=== PATIENT | female | born 1970 | race Caucasian/White ===

== ENCOUNTER 2021-08-12 20:49 | Inpatient (IN) | payer BC, SELFPAY ==
[2021-08-12 20:59] VITALS: BP 111/58; PULSE 92; RESP 16; TEMP 36.4; O2SAT 93; BMI 26.6
[2021-08-12 21:46] LABS: Appearance Urine CLEAR; Color Urine YELLOW; Glucose Urine UA NEG (NEG); Leukocyte Esterase Urine NEG (NEG); Nitrite Urine NEG (NEG); Specific Gravity - Urine <= 1.005 (1.005-1.025); Urine Blood NEG (NEG); Urine Ketones NEG (NEG); Urine Protein NEG (NEG-TRACE)
[2021-08-12 21:51] LABS: Bacteria Urine 1+ /LPF; Squamous Epithelial Cell Urine 1+ /LPF
[2021-08-12 21:52] LABS: UPreg QC Valid YES; Urine Pregnancy NEGATIVE (NEGATIVE)
--- NOTE | 2021-08-12 21:54 | ED.PSYCH ---
HPI - Psych General Chief Complaint: Psychiatric Symptoms Stated Complaint: crisis Source: patient and EMS Mode of arrival: EMS Limitations: no limitations History of Present Illness HPI Narrative: 51-year-old female presents via EMS for suicidal statement. MD complaint: suicidal ideation, feels depressed and alcohol abuse Duration: constant History of same: Yes Relieving factors: none Exacerbating factors: alcohol Context: significant life stressor Associated psychiatric symptoms: depression and suicidal ideation Associated symptoms: denies other symptoms Treatments prior to arrival: placed on mental health hold If self harm: admits thoughts of self harm Related Data Home Medications Medication Instructions Recorded Confirmed paroxetine HCl 40 mg tablet 1 tab PO BEDTIME 08/12/21 08/12/21 trazodone 50 mg tablet 1 - 2 tab PO BEDTIME PRN 08/12/21 08/12/21 Allergies Allergy/AdvReac Type Severity Reaction Status Date / Time No Known Allergies Allergy Unknown Unverified 05/07/20 17:26 PCN Allergy Unknown rash Uncoded 11/19/13 00:00 Review of Systems Review of Systems: Constitutional: No Fever, No Chills ENT/Mouth: No sore throat, No Rhinorrhea Eyes: No Eye Pain, No Swelling, No Redness Cardiovascular: No Chest Pain, No SOB Respiratory: No Cough, No Sputum Gastrointestinal: No Nausea, No Vomiting, No Diarrhea, No abdominal Pain Genitourinary: No Dysuria, No Hematuria Musculoskeletal: No joint pain, No Myalgias, No Joint Swelling Skin: No Skin Lesions, No rash Neuro: No Weakness, No Numbness, No Loss of Consciousness, No Dizziness, No Headache Psych: No Anxiety, positive Depression, positive SI, no HI/AH/VH, positive alcohol abuse Heme/Lymph: No Bruising, No Bleeding,No Lymphadenopathy Endocrine: No Polyuria, No Polydipsia Yes all other systems are reviewed and are negative PMF Past Medical History Attestation statement: The following information was validated with the patient. Source: old records reviewed Social History Social History Advance Directives: No Advance Directives Information Provided: Yes Patient : No Physical Exam Vital Signs: Vital Signs: Last Vital Signs Temp 97.6 F 08/12/21 20:59 Pulse 92 08/12/21 20:59 Resp 16 08/12/21 20:59 BP 111/58 L 08/12/21 20:59 Pulse Ox 93 08/12/21 20:59 BMI result Body Mass Index 26.6 Appearance: Alert. Oriented X3. Intoxicated. Moderate emotional distress. Eyes: Pupils equal, round and reactive to light. ENT: Pharynx normal. Moist mucous membranes. Neck: Normal inspection. Neck supple. CVS: Normal heart rate and rhythm. Pulses normal. Respiratory: No respiratory distress. Breath sounds normal. Abdomen: Soft and nontender. Skin: Skin warm and dry. Normal skin color. Normal skin turgor. Extremities: No lower extremity edema. Gait well-balanced well coordinated. Neuro: No motor deficit. No sensory deficit. Cranial nerves 2-12 intact. Course Course Course Narrative: 51-year-old female presents via EMS for suicidal statement made after she was served with divorce papers. Clearly intoxicated, has been admitted to this facility for alcohol intoxication psychiatric evaluation in the past. Patient is on a Section 12 from the community. Medically cleared, ETOH is 200. Positive for marijuana. Negative for COVID. Care team re-evaluate for the morning. Section 12 signed by this PHOTOVOLTAIC POWER SYSTEMS ENGINEER. 1:18 a.m. Physician observation started at this time. MDM - Psych Differential Diagnosis Differential diagnosis: Likely suicidal ideation, depression, acute anxiety, substance abuse and alcohol intoxication Medical Records Attestation: I reviewed the patient's medical records. Lab Data Attestation: I reviewed the patient's lab results. Labs: Lab Results 08/12/21 08/12/21 08/12/21 Range/Units 21:28 21:28 21:28 Urine Color YELLOW Urine Appearance CLEAR Urine pH 6.0 (5.0-8.0) Ur Specific [place] <= 1.005 (1.005-1.025) Urine Protein NEG (NEG-TRACE) MG/DL Urine Glucose (UA) NEG (NEG) MG/DL Urine Ketones NEG (NEG) MG/DL Urine Blood NEG (NEG) Urine Nitrite NEG (NEG) Ur Leukocyte Esterase NEG (NEG) Urine RBC 1-4 (0) /HPF Urine WBC 1-4 (0-4) /HPF Ur Squamous Epith Cells 1+ /LPF Urine Bacteria 1+ /LPF Urine Test NEGATIVE (NEGATIVE) Urine Opiates Screen Not Detected (Not Detect) Urine Fentanyl Screen Not Detected (Not Detect) Ur Barbiturates Screen Not Detected (Not Detect) Ur Phencyclidine Scrn Not Detected (Not Detect) Ur Amphetamines Screen Not Detected (Not Detect) U Benzodiazepines Scrn Not Detected (Not Detect) Urine Cocaine Screen Not Detected (Not Detect) U Marijuana (THC) Screen POSITIVE H (Not Detect) Ethyl Alcohol mg/dL COVID-19 (ZEESHAN) (Negative) COVID-19 Clin Com 08/12/21 08/12/21 Range/Units 21:29 21:37 Urine Color Urine Appearance Urine pH (5.0-8.0) Ur Specific [place] (1.005-1.025) Urine Protein (NEG-TRACE) MG/DL Urine Glucose (UA) (NEG) MG/DL Urine Ketones (NEG) MG/DL Urine Blood (NEG) Urine Nitrite (NEG) Ur Leukocyte Esterase (NEG) Urine RBC (0) /HPF Urine WBC (0-4) /HPF Ur Squamous Epith Cells /LPF Urine Bacteria /LPF Urine Test (NEGATIVE) Urine Opiates Screen (Not Detect) Urine Fentanyl Screen (Not Detect) Ur Barbiturates Screen (Not Detect) Ur Phencyclidine Scrn (Not Detect) Ur Amphetamines Screen (Not Detect) U Benzodiazepines Scrn (Not Detect) Urine Cocaine Screen (Not Detect) U Marijuana (THC) Screen (Not Detect) Ethyl Alcohol 239 mg/dL COVID-19 (ZEESHAN) Negative (Negative) COVID-19 Clin Com See Note Discharge Plan Discharge Clinical Impression: Depression, Acute anxiety Prescriptions: No Action trazodone 50 mg tablet 1 - 2 tab PO BEDTIME PRN (Reason: insomnia) RF: 0 paroxetine HCl 40 mg tablet 1 tab PO BEDTIME RF: 0
[2021-08-12 21:59] LABS: Ethanol 239 mg/dL
[2021-08-12 22:00] LABS: COVID-19 Test Negative (Negative)
[2021-08-12 22:02] LABS: Amphetamine Screen Urine Not Detected (Not Detect); Barbiturates, Urine Not Detected (Not Detect); Benzodiazepines Screen Urine Not Detected (Not Detect); Cannabinoid Screen Urine POSITIVE (Not Detect); Cocaine Screen Urine Not Detected (Not Detect); Fentanyl, urine Not Detected (Not Detect); Opiate Screen Urine Not Detected (Not Detect); Phencyclidine Screen Urine Not Detected (Not Detect)
--- NOTE | 2021-08-13 | ECG_ITS ---
Test Reason : GENERAL MEDICAL Blood Pressure : / mmHG Vent. Rate : 076 BPM Atrial Rate : 076 BPM P-R Int : 136 ms QRS Dur : 080 ms QT Int : 386 ms P-R-T Axes : 037 052 025 degrees QTc Int : 434 ms Normal sinus rhythm Normal ECG No previous ECGs available Referred By: Enrike Rojas Electronically Signed By:ILSA NUR
--- NOTE | 2021-08-13 00:19 | MHC.CARE ---
Due to pt's alcohol level, CARE team will conduct a consult/eval in the morning.
--- NOTE | 2021-08-13 05:36 | PC.NURSE ---
Patient slept through the night, asymptomatic of withdrawal at this time, med rec completed/pending providers approval, patient has long history of alcohol abuse and was sectioned 35 in the past as reported by patient's daughter, behavior appropriate and cooperative, patient is on section 12 for suicidal statement, care team consult was made based on patient's insurance status, patient will be screened by care team in the morning, will continue to monitor.
[2021-08-13 06:40] VITALS: BP 119/76; PULSE 87; RESP 16; TEMP 36.3; O2SAT 96
[2021-08-13 07:28] VITALS: RESP 16
[2021-08-13] MEDS: Ibuprofen 600 MG TABLET PO (08:11)
--- NOTE | 2021-08-13 08:25 | PC.NURSE ---
pt's daughter mey mg called [facility] [place] and pt spoke with her on the community room phone for a short time. pt refused breakfast.
[2021-08-13 08:28] VITALS: BP 121/70; PULSE 78; RESP 16; TEMP 36.3; O2SAT 97
--- NOTE | 2021-08-13 13:27 | PC.NURSE ---
PT VERY AGITATED/UPSET OVER ?INVOLUNTARY INPT ADMIT. PT ON PHONE W/KIDS MULTIPLE TIMES, SPOKE W/EX WHICH SEEMED TO AGITATE HER MORE. OFFERED PRN, WHICH PT DECLINED AT THIS TIME
--- NOTE | 2021-08-13 13:38 | MHC.CARE ---
CARE team met with pt. Discused case with Meena Arnold APRN who is in agreement with section 12. Provider signed 12b, pt will be likely be going to [facility] today. Pt not satisfied with outcome and reports she will be refusing to go.
[2021-08-13] MEDS: LORazepam 1 MG TABLET 2 MG PO (14:02)
[2021-08-13 15:41] VITALS: BP 149/91; PULSE 87; RESP 16; TEMP 37.3; O2SAT 97
--- NOTE | 2021-08-13 16:40 | PC.NURSE ---
nurse to nurse given to [facility] staff patient going to room 511-[address] Abdi
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
--- NOTE | 2021-08-13 17:47 | PC.NURSE ---
Patient is alert and oriented x 4 lung sounds are clear skin ispink warm and dry speaks in full sentences without difficulty verbalized understanding of being admitted to under the care of Dr. Toure in room 511-2. escorted to floor by staff and security with belongings
[2021-08-13 18:00] VITALS: BP 154/82; PULSE 82; RESP 18; TEMP 36.6; O2SAT 98
[2021-08-13] MEDS: PARoxetine HCL 40 MG TABLET PO (21:04)
[2021-08-13] MEDS: traZODone HCL 50 MG TABLET PO (21:04)
--- NOTE | 2021-08-13 21:41 | PC.ADMIT ---
51 y.o. female admitted from [facility] on a 12 for psychiatric evaluation. Per crisis report: Pt presented to ED via EMS for suicidal statements after she was served with divorce papers. Pt allegedly wrote on social media and texts to her children. Pt denies these occurrences. On admission; Pt A&O, 01/28 depression, tearful and cooperative. Pt reports that her delivered divorce papers to her to show his girlfriend. Pt reports that she has been staying away from alcohol and relapsed on that day. Pt denies posting anything on social media. Pt denies si,hi,avh at this time. Pt reports that she currently does not have a PCP because they will not take her insurance. Pt denies any PMHx at this time. Orders obtained. Pt on 15 minute safety checks.
[2021-08-14 06:00] VITALS: BP 134/68; PULSE 75; TEMP 36.7; O2SAT 99
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
[2021-08-14] MEDS: PARoxetine HCL 40 MG TABLET PO (21:21)
[2021-08-14] MEDS: lamoTRIgine 25 MG TABLET PO (21:21)
--- NOTE | 2021-08-14 23:03 | PC.NURSE ---
Pt's own control pills have been sent to the pharmacy. Doctor Manfred has requested that i put in a telephone order but unable to find. Will be asking day shift to follow up.
[2021-08-15] MEDS: traZODone HCL 50 MG TABLET PO ×2 (01:32→22:50)
--- NOTE | 2021-08-15 01:34 | PC.NURSE ---
Gave 1st 50mg of Trazodone at 2330, the pt awoke after another pt woke yelling. So i gave her the additional 50mg of trazodone at 0130. [ End ]
[2021-08-15 06:00] VITALS: BP 121/57; PULSE 69; RESP 18; TEMP 36.4; O2SAT 96
--- NOTE | 2021-08-15 18:10 | HO.PSYCHPN ---
Subjective Subjective Date of Service: 08/15/21 Reason For Visit: crisis Interim History: Patient seen and discussed with team. Patient evaluated this morning and upon interview pt denies adverse effects or SE on lamictal, no rash. She reports her sleep has been poor and that in the past she was prescribed clonidine with good effect, one would knock me out, asks to have this as a PRN. Pt says she is now glad that she came to the hospital, accepting of treatment, however continues to advocate for discharging on Monday, as she reports she has a hypnotist appointment Monday for wt loss. She is also engaged in an IOP program. In the milieu, patient is safe and appropriate in behavior. Denies SI/SIB/HI upon inquiry. Denies irritability or assaultive ideation. Says he feels safe. Medication Compliance: Yes Side effects from medications: No Attending Groups: Yes Review of Systems Acute medical concerns: No Medical Review of Systems: unchanged Mental Status Exam Mental Status Exam Narrative: A&O. Well groomed, good hygiene, somewhat overweight, in hospital attire, short blonde hair. Good eye contact, attentive. No Tics or Tremors. No abnormal involuntary movements. Calm, cooperative, engaged. Non-pressured speech, spontaneous with regular rate and rhythm, normal volume and prosody. No prolonged speech latency or dysarthria. Mood is ?better,? affect is euthymic, calm. Denies SI/SIB/HI upon inquiry. Denies A/VH or delusional thought content. Thoughts are perseverative on wanting to go home. No known cognitive or memory impairment. Insight/ Judgment limited. Diagnostics Vital Signs (24Hr): Vital Signs - 24 hr 08/15/21 22:50 08/16/21 06:00 Temperature 97.7 F Pulse Rate 84 67 Respiratory Rate 16 Blood Pressure 149/78 H 107/59 L Pulse Oximetry 98 BMI result Body Mass Index 26.6 Labs Results: 08/16/21 08:09 08/16/21 08:09 Labs: Laboratory Results - last 48 hr 08/15/21 08/16/21 08/16/21 21:46 08:09 08:09 WBC 6.5 RBC 4.07 L Hgb 11.7 L Hct 36.5 L MCV 89.7 MCH 28.7 MCHC 32.1 RDW 12.7 Plt Count 290 MPV 9.5 Immature Gran % (Auto) 0.2 Neut % (Auto) 64.1 Lymph % (Auto) 22.5 Warren % (Auto) 9.5 Eos % (Auto) 2.8 Baso % (Auto) 0.9 Lymph # (Auto) 1.5 Warren # (Auto) 0.6 Eos # (Auto) 0.2 Baso # (Auto) 0.1 Abs Immat Gran (auto) 0.01 Absolute Neuts (auto) 4.2 Absolute Nucleated RBC 0.000 Nucleated RBC % (auto) 0.0 Sodium 139 Potassium 4.3 Chloride 106 Carbon Dioxide 26 Anion Gap 11 L BUN 13 Creatinine 0.81 Estim Creat Clear Calc 82.9 Estimated GFR > 60 Random Glucose 100 Calcium 9.3 Magnesium 2.1 Total Bilirubin 0.6 AST 25 ALT 17 Alkaline Phosphatase 44 Total Protein 6.6 Albumin 3.9 Vitamin B12 Folate TSH 1.63 08/16/21 08:09 WBC RBC Hgb Hct MCV MCH MCHC RDW Plt Count MPV Immature Gran % (Auto) Neut % (Auto) Lymph % (Auto) Warren % (Auto) Eos % (Auto) Baso % (Auto) Lymph # (Auto) Warren # (Auto) Eos # (Auto) Baso # (Auto) Abs Immat Gran (auto) Absolute Neuts (auto) Absolute Nucleated RBC Nucleated RBC % (auto) Sodium Potassium Chloride Carbon Dioxide Anion Gap BUN Creatinine Estim Creat Clear Calc Estimated GFR Random Glucose Calcium Magnesium Total Bilirubin AST ALT Alkaline Phosphatase Total Protein Albumin Vitamin B12 406 Folate 19.8 TSH Medications Medications Current Medications Clonidine HCl (Clonidine Hcl 0.1 Mg Tablet) 0.1 mg PO BEDTIME PRN; Protocol PRN Reason: insomnia Last Admin: 08/15/21 22:50 Dose: 0.1 mg Documented by: Ibuprofen (Ibuprofen 600 Mg Tablet) 600 mg PO Q6H PRN PRN Reason: headache pain Lamotrigine (Lamotrigine 25 Mg Tablet) 25 mg PO BEDTIME RAINA Last Admin: 08/15/21 22:44 Dose: 25 mg Documented by: Lorazepam (Lorazepam 1 Mg Tablet) 2 mg PO Q4H PRN PRN Reason: Alcohol Withdrawal Last Admin: 08/13/21 14:02 Dose: 2 mg Documented by: Patient Own Medication ( Norethindrone Ac-Eth Estradiol 1-20 Mg- Mcg Tablet) 1 each PO DAILY RAINA Last Admin: 08/16/21 08:12 Dose: 1 each Documented by: Paroxetine HCl (Paroxetine Hcl 40 Mg Tablet) 40 mg PO BEDTIME RAINA Last Admin: 08/15/21 22:44 Dose: 40 mg Documented by: Trazodone HCl (Trazodone Hcl 50 Mg Tablet) 50 - 100 mg PO BEDTIME PRN PRN Reason: insomnia Last Admin: 08/15/21 22:50 Dose: 50 mg Documented by: Allergies Allergies Allergy/AdvReac Type Severity Reaction Status Date / Time No Known Allergies Allergy Unknown Unverified 05/07/20 17:26 PCN Allergy Unknown rash Uncoded 11/19/13 00:00 Assessment & Plan Assessment & Plan (1) Alcohol use disorder, moderate, dependence: Status: Acute Code(s): F10.20 - Alcohol dependence, uncomplicated (2) MDD (major depressive disorder), recurrent episode, moderate: Status: Acute Code(s): F33.1 - Major depressive disorder, recurrent, moderate Assessment and Plan: Amanda is a 51 year old female who carries a dx of MDD, recurrent, Alcohol use disorder, and likely has BPD. She presented to [facility] ED 08/12/21 and is assessed by CARE team after medical clearance. She had BAL 239 on arrival and per co-response and PD she had made several passive/ vague suicidal statements on social media and via text to various family members after taking off in her car. Pt is currently denying withdrawal sx and says this relapse occurred after being sober since 05/2021. She is currently in an IOP program for alcohol abuse and has OP psych services, provider is Neli Freitas. Pt currently denies SI/SIB. Denies alcohol withdrawal sx. Pt arrived via section 12b due to further evaluation for imminent risk of harm to self. Today pt is somewhat more accepting of treatment, admits that she has issues with impulsivity and mood regulation when she feels triggered. She has had difficulty managing interpersonal relationships and has been decompensating, with increase in drinking behavior since her mom November 2020. Discussed that paxil does not appear to be fully maintaining her sx of depression, as pt has reported feeling isolated and sad and has been tearful at times. Pt does not want to adjust paxil dose and denies benefit from most recent increase to 40 mg. Discussed starting lamictal, as this may help with sx of depression, mood instability, and BPD features. Reviewed risks and benefits, including monitoring for rash/ SJS. Will lamictal start 25 mg QHS. 08/15: Will continue lamictal trial to target mood stability, impulsivity, and BPD features. Will start clonidine 0.1 mg QHS PRN for poor sleep, as pt reports past benefit on this for anxieyt, hyperarousal, and sleep at bedtime. Section 12b, Q15 min checks Monitor response to medications. Monitor for safety in the milieu. Discharge on stabilization. Patient seen. Chart reviewed. Discussed with team. Obtain collateral contact info?as needed I spent minutes with the patient and/or on the patient floor today, greater than?50% of which was spent counseling/coordinating care. Reason for contiued inpatient stay Substantial Risk for: med/psych decompensation
[2021-08-15 22:27] LABS: TSH reflex Free T4 1.63 uIU/mL (0.32-4.0)
[2021-08-15] MEDS: PARoxetine HCL 40 MG TABLET PO (22:44)
[2021-08-15] MEDS: lamoTRIgine 25 MG TABLET PO (22:44)
[2021-08-15 22:50] VITALS: BP 149/78; PULSE 84
[2021-08-15] MEDS: cloNIDine HCL 0.1 MG TABLET PO (22:50)
[2021-08-16 06:00] VITALS: BP 107/59; PULSE 67; RESP 16; TEMP 36.5; O2SAT 98
[2021-08-16 08:29] LABS: MANUAL DIFF FLAG NO
[2021-08-16 08:35] LABS: Basophils Absolute Auto 0.1 X10*3/uL (0.0-0.2); Basophils Percent Auto 0.9 % (0-2); Eosinophils Absolute Auto 0.2 X10*3/uL (0.0-0.4); Eosinophils Percent Auto 2.8 % (0-4); Hematocrit 36.5 % (37.0-47.0); Hemoglobin 11.7 g/dl (12.0-16.0); Imm Gran Abs Auto 0.01 X10*3/uL (0.00-0.03); Imm Gran Pct Auto 0.2 % (0.0-0.4); Lymphocytes Absolute Auto 1.5 X10*3/uL (1.2-4.9); Lymphocytes Percent Auto 22.5 % (20-40); Mean Corpuscular HGB Conc 32.1 g/dl (31.0-35.0); Mean Corpuscular Hemoglobin 28.7 pg (27.0-33.0); Mean Corpuscular Volume 89.7 fL (80.0-98.0); Mean Platelet Volume 9.5 fL (9.4-12.3); Monocytes Absolute Auto 0.6 X10*3/uL (0.1-1.2); Monocytes Percent Auto 9.5 % (2-11); Neutrophils Absolute Auto 4.2 x10*3/uL (2.0-8.3); Neutrophils Percent Auto 64.1 % (45-73); Platelet Count 290 X10*3/uL (160-400); Red Blood Count 4.07 X10*6/uL (4.20-5.50); Red Cell Distribution Width 12.7 % (11.0-16.0); White Blood Count 6.5 X10*3/uL (4.8-10.8)
[2021-08-16 08:54] LABS: Alanine Aminotransferase 17 U/L (0-31); Albumin Level 3.9 g/dL (3.5-5.0); Alkaline Phosphatase 44 U/L (39-117); Anion Gap 11 (12-20); Aspartate Amino Transferase 25 U/L (5-31); Bilirubin Total 0.6 mg/dL (0.0-1.0); Blood Urea Nitrogen 13 mg/dL (9-16); Calcium 9.3 mg/dL (8.4-10.2); Carbon Dioxide 26 mmol/L (22-29); Chloride 106 mmol/L (96-108); Creatinine Clr Calc Pharmacy 82.9; Estimated Glomerular Filt Rate > 60; Glucose Random 100 mg/dL (60-115); Magnesium 2.1 mg/dL (1.6-2.6); Potassium 4.3 mmol/L (3.3-5.1); Sodium 139 mmol/L (135-145); Total Protein 6.6 g/dL (6.5-8.0)
[2021-08-16 09:53] LABS: Folate 19.8 ng/mL (> or = 4.0); Vitamin B12 406 pg/mL (200-900)
--- NOTE | 2021-08-16 13:23 | P.PNPSI_ITS ---
Subjective Subjective Date of Service: 08/16/21 Reason For Visit: crisis Interim History: Pt admitted 08/13 for treatment of recurrent major depression and alcohol use disorder. She is planning discharge today, is feeling prepared, non suicidal, wanting to return to her children, family, work and life. She has just completed a partial hospital program with [facility] and is considering asking if she can continue or repeat the program for added support, education and structure. 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 Well groomed, good hygiene, somewhat overweight, in hospital attire, short blonde hair. Good eye contact, attentive. No Tics or Tremors. No abnormal involuntary movements. Calm, cooperative, engaged. Non-pressured speech, spontaneous with regular rate and rhythm, normal volume and prosody. No prolonged speech latency or dysarthria. Mood is ?better,? affect is euthymic, calm. Denies SI/SIB/HI upon inquiry. Denies A/VH or delusional thought content. Thoughts are perseverative on wanting to go home. No known cognitive or memory impairment. Insight/ Judgment limited. Patient Appearance: Appropriate Patient Orientation: Person, Place, Time and Situation Level of Consciousness: Alert Patient Behavior: Talkative and Good Eye Contact Mood Description: Cheerful Affect Description: Calm Patient Cognition Impaired: No Ability to Follow Directions: Good Speech Pattern: Spontaneous Speech Memory Description: Intact Hallucinations: None Delusions: Not Present Thought Process: Goal Oriented Thought Content: positive for Goal Oriented Judgement: Good Diagnostics Vital Signs (24Hr): Vital Signs - 24 hr 08/15/21 22:50 08/16/21 06:00 Temperature 97.7 F Pulse Rate 84 67 Respiratory Rate 16 Blood Pressure 149/78 H 107/59 L Pulse Oximetry 98 BMI result Management Aide New 4Bd Body Mass Index Management Aide New 4d 26.6 Management Aide New 4d Management Aide New 4d Labs Results: 08/16/21 08:09 08/16/21 08:09 Labs: Laboratory Results - last 48 hr 08/15/21 08/16/21 08/16/21 21:46 08:09 08:09 WBC 6.5 RBC 4.07 L Hgb 11.7 L Hct 36.5 L MCV 89.7 MCH 28.7 MCHC 32.1 RDW 12.7 Plt Count 290 MPV 9.5 Immature Gran % (Auto) 0.2 Neut % (Auto) 64.1 Lymph % (Auto) 22.5 Scurry % (Auto) 9.5 Eos % (Auto) 2.8 Baso % (Auto) 0.9 Lymph # (Auto) 1.5 [place] # (Auto) 0.6 Eos # (Auto) 0.2 Baso # (Auto) 0.1 Abs Immat Gran (auto) 0.01 Absolute Neuts (auto) 4.2 Absolute Nucleated RBC 0.000 Nucleated RBC % (auto) 0.0 Sodium 139 Potassium 4.3 Chloride 106 Carbon Dioxide 26 Anion Gap 11 L BUN 13 Creatinine 0.81 Estim Creat Clear Calc 82.9 Estimated GFR > 60 Random Glucose 100 Calcium 9.3 Magnesium 2.1 Total Bilirubin 0.6 AST 25 ALT 17 Alkaline Phosphatase 44 Total Protein 6.6 Albumin 3.9 Vitamin B12 Folate TSH 1.63 08/16/21 08:09 WBC RBC Hgb Hct MCV MCH MCHC RDW Plt Count MPV Immature Gran % (Auto) Neut % (Auto) Lymph % (Auto) [place] % (Auto) Eos % (Auto) Baso % (Auto) Lymph # (Auto) [place] # (Auto) Eos # (Auto) Baso # (Auto) Abs Immat Gran (auto) Absolute Neuts (auto) Absolute Nucleated RBC Nucleated RBC % (auto) Sodium Potassium Chloride Carbon Dioxide Anion Gap BUN Creatinine Estim Creat Clear Calc Estimated GFR Random Glucose Calcium Magnesium Total Bilirubin AST ALT Alkaline Phosphatase Total Protein Albumin Vitamin B12 406 Folate 19.8 TSH Medications Medications Current Medications Clonidine HCl (Clonidine Hcl 0.1 Mg Tablet) 0.1 mg PO BEDTIME PRN; Protocol PRN Reason: insomnia Last Admin: 08/15/21 22:50 Dose: 0.1 mg Documented by: Ibuprofen (Ibuprofen 600 Mg Tablet) 600 mg PO Q6H PRN PRN Reason: headache pain Lamotrigine (Lamotrigine 25 Mg Tablet) 25 mg PO BEDTIME RAINA Last Admin: 08/15/21 22:44 Dose: 25 mg Documented by: Lorazepam (Lorazepam 1 Mg Tablet) 2 mg PO Q4H PRN PRN Reason: Alcohol Withdrawal Last Admin: 08/13/21 14:02 Dose: 2 mg Documented by: Patient Own Medication ( Norethindrone Ac-Eth Estradiol 1-20 Mg- Mcg Tablet) 1 each PO DAILY RAINA Last Admin: 08/16/21 08:12 Dose: 1 each Documented by: Paroxetine HCl (Paroxetine Hcl 40 Mg Tablet) 40 mg PO BEDTIME RAINA Last Admin: 08/15/21 22:44 Dose: 40 mg Documented by: Trazodone HCl (Trazodone Hcl 50 Mg Tablet) 50 - 100 mg PO BEDTIME PRN PRN Reason: insomnia Last Admin: 08/15/21 22:50 Dose: 50 mg Documented by: Allergies Allergies Allergy/AdvReac Type Severity Reaction Status Date / Time No Known Allergies Allergy Unknown Unverified 05/07/20 17:26 PCN Allergy Unknown rash Uncoded 11/19/13 00:00 Assessment & Plan Assessment & Plan (1) Alcohol use disorder, moderate, dependence: Status: Acute Code(s): F10.20 - Alcohol dependence, uncomplicated (2) MDD (major depressive disorder), recurrent episode, moderate: Status: Acute Code(s): F33.1 - Major depressive disorder, recurrent, moderate Plan Amanda is a 51 year old female who carries a dx of MDD, recurrent, Alcohol use disorder, and likely has BPD. She presented to [facility] ED 08/12/21 and is assessed by CARE team after medical clearance. She had BAL 239 on arrival and per co- response and PD she had made several passive/ vague suicidal statements on social media and via text to various family members after taking off in her car. Pt is currently denying withdrawal sx and says this relapse occurred after being sober since 05/2021. She is currently in an IOP program for alcohol abuse and has OP psych services, provider is Neli Freitas. Pt currently denies SI/SIB. Denies alcohol withdrawal sx. Pt arrived via section 12b due to further evaluation for imminent risk of harm to self. Today pt is somewhat more accepting of treatment, admits that she has issues with impulsivity and mood regulation when she feels triggered. She has had difficulty managing interpersonal relationships and has been decompensating, with increase in drinking behavior since her mom November 2020. Discussed that paxil does not appear to be fully maintaining her sx of depression, as pt has reported feeling isolated and sad and has been tearful at times. Pt does not want to adjust paxil dose and denies benefit from most recent increase to 40 mg. Discussed starting lamictal, as this may help with sx of depression, mood instability, and BPD features. Reviewed risks and benefits, including monitoring for rash/ SJS. Will lamictal start 25 mg QHS. 08/15: Will continue lamictal trial to target mood stability, impulsivity, and BPD features. Will start clonidine 0.1 mg QHS PRN for poor sleep, as pt reports past benefit on this for anxieyt, hyperarousal, and sleep at bedtime. Section 12b, Q15 min checks Monitor response to medications. Monitor for safety in the milieu. Discharge on stabilization. Patient seen. Chart reviewed. Discussed with team. Obtain collateral contact info?as needed 08/16/21: Discharge planned for today. I spent 40 minutes with the patient and/or on the patient floor today, greater than?50% of which was spent counseling/coordinating care. Patient educated on: medication risk/benefits, substance abuse and therapeutic strategies Informed Consent: understands Reason for contiued inpatient stay Substantial Risk for: stable for discharge
--- NOTE | 2021-08-17 09:09 | PM.PSYDC ---
DS: Providers Provider Date of Service: 08/16/21 Date of admission: 08/13/21 16:11 Date of discharge: 08/16/21 Primary care physician: Unknown Physician Admitting clinician: Meena Arnold Attending physician on admission: Delmar Mercer Attending physician on discharge: Delmar Mercer Discharging clinician: Jenna Watts DS: Diagnosis Discharge Diagnosis (1) Alcohol use disorder, moderate, dependence: Status: Acute (2) MDD (major depressive disorder), recurrent episode, moderate: Status: Acute DS: Medications Discharge Medications Home Medications: Home Medications Medication Instructions Recorded Confirmed paroxetine HCl 40 mg tablet 1 tab PO BEDTIME 08/12/21 08/12/21 trazodone 50 mg tablet 1 - 2 tab PO BEDTIME PRN 08/12/21 08/12/21 norethindrone acetate 1 mg-ethinyl 1 tab PO DAILY 08/15/21 08/15/21 estradiol 20 mcg tablet Previous Rx's Medication Instructions Recorded lamotrigine 25 mg tablet 25 mg PO BEDTIME #30 tab 08/16/21 Mental Status Exam Mental Status Exam Narrative: A&O. Well groomed, good hygiene, somewhat overweight, in hospital attire, short blonde hair. Good eye contact, attentive. No Tics or Tremors. No abnormal involuntary movements. Calm, cooperative, engaged. Non-pressured speech, spontaneous with regular rate and rhythm, normal volume and prosody. No prolonged speech latency or dysarthria. Mood is ?better,? affect is euthymic, calm. Denies SI/SIB/HI upon inquiry. Denies A/VH or delusional thought content. Thoughts are perseverative on wanting to go home. No known cognitive or memory impairment. Insight/ Judgment limited. Patient Appearance: Appropriate Patient Orientation: Person, Place, Time and Situation Level of Consciousness: Alert Patient Behavior: Talkative and Good Eye Contact Mood Description: Cheerful Affect Description: Calm Patient Cognition Impaired: No Ability to Follow Directions: Good Speech Pattern: Spontaneous Speech Memory Description: Intact Hallucinations: None Delusions: Not Present Thought Process: Goal Oriented Thought Content: positive for Goal Oriented Judgement: Good Data Data Completed and Pending Completed studies during hospitalization [Text1]: 08/12/21 08/12/21 08/12/21 21:28 21:28 21:28 WBC RBC Hgb Hct MCV MCH MCHC RDW Plt Count MPV Immature Gran % (Auto) Neut % (Auto) Lymph % (Auto) [place] % (Auto) Eos % (Auto) Baso % (Auto) Lymph # (Auto) [place] # (Auto) Eos # (Auto) Baso # (Auto) Abs Immat Gran (auto) Absolute Neuts (auto) Absolute Nucleated RBC Nucleated RBC % (auto) Sodium Potassium Chloride Carbon Dioxide Anion Gap BUN Creatinine Estim Creat Clear Calc Estimated GFR Random Glucose Calcium Magnesium Total Bilirubin AST ALT Alkaline Phosphatase Total Protein Albumin Vitamin B12 Folate TSH Urine Color YELLOW Urine Appearance CLEAR Urine pH 6.0 Ur Specific [place] <= 1.005 Urine Protein NEG Urine Glucose (UA) NEG Urine Ketones NEG Urine Blood NEG Urine Nitrite NEG Ur Leukocyte Esterase NEG Urine RBC 1-4 Urine WBC 1-4 Ur Squamous Epith Cells 1+ Urine Bacteria 1+ Urine Test NEGATIVE Urine Opiates Screen Not Detected Urine Fentanyl Screen Not Detected Ur Barbiturates Screen Not Detected Ur Phencyclidine Scrn Not Detected Ur Amphetamines Screen Not Detected U Benzodiazepines Scrn Not Detected Urine Cocaine Screen Not Detected U Marijuana (THC) Screen POSITIVE H Ethyl Alcohol COVID-19 ([facility]) [facility] 08/12/21 08/12/21 08/15/21 21:29 21:37 21:46 WBC RBC Hgb Hct MCV MCH MCHC RDW Plt Count MPV Immature Gran % (Auto) Neut % (Auto) Lymph % (Auto) [place] % (Auto) Eos % (Auto) Baso % (Auto) Lymph # (Auto) [place] # (Auto) Eos # (Auto) Baso # (Auto) Abs Immat Gran (auto) Absolute Neuts (auto) Absolute Nucleated RBC Nucleated RBC % (auto) Sodium Potassium Chloride Carbon Dioxide Anion Gap BUN Creatinine Estim Creat Clear Calc Estimated GFR Random Glucose Calcium Magnesium Total Bilirubin AST ALT Alkaline Phosphatase Total Protein Albumin Vitamin B12 Folate TSH 1.63 Urine Color Urine Appearance Urine pH Ur Specific [place] Urine Protein Urine Glucose (UA) Urine Ketones Urine Blood Urine Nitrite Ur Leukocyte Esterase Urine RBC Urine WBC Ur Squamous Epith Cells Urine Bacteria Urine Test Urine Opiates Screen Urine Fentanyl Screen Ur Barbiturates Screen Ur Phencyclidine Scrn Ur Amphetamines Screen U Benzodiazepines Scrn Urine Cocaine Screen U Marijuana (THC) Screen Ethyl Alcohol 239 COVID-19 ([facility]) Negative COVID-19 Clin Com See Note 08/16/21 08/16/21 08/16/21 08:09 08:09 08:09 WBC 6.5 RBC 4.07 L Hgb 11.7 L Hct 36.5 L MCV 89.7 MCH 28.7 MCHC 32.1 RDW 12.7 Plt Count 290 MPV 9.5 Immature Gran % (Auto) 0.2 Neut % (Auto) 64.1 Lymph % (Auto) 22.5 [place] % (Auto) 9.5 Eos % (Auto) 2.8 Baso % (Auto) 0.9 Lymph # (Auto) 1.5 [place] # (Auto) 0.6 Eos # (Auto) 0.2 Baso # (Auto) 0.1 Abs Immat Gran (auto) 0.01 Absolute Neuts (auto) 4.2 Absolute Nucleated RBC 0.000 Nucleated RBC % (auto) 0.0 Sodium 139 Potassium 4.3 Chloride 106 Carbon Dioxide 26 Anion Gap 11 L BUN 13 Creatinine 0.81 Estim Creat Clear Calc 82.9 Estimated GFR > 60 Random Glucose 100 Calcium 9.3 Magnesium 2.1 Total Bilirubin 0.6 AST 25 ALT 17 Alkaline Phosphatase 44 Total Protein 6.6 Albumin 3.9 Vitamin B12 406 Folate 19.8 TSH Urine Color Urine Appearance Urine pH Ur Specific [place] Urine Protein Urine Glucose (UA) Urine Ketones Urine Blood Urine Nitrite Ur Leukocyte Esterase Urine RBC Urine WBC Ur Squamous Epith Cells Urine Bacteria Urine Test Urine Opiates Screen Urine Fentanyl Screen Ur Barbiturates Screen Ur Phencyclidine Scrn Ur Amphetamines Screen U Benzodiazepines Scrn Urine Cocaine Screen U Marijuana (THC) Screen Ethyl Alcohol COVID-19 ([facility]) COVID-19 Clin Com DS: Summary Hospital Course Hospital Course: Admission to adult psychiatry to address symptoms of recurrent major depression, alcohol use disorder and suicidal ideation with verbalization over social media. Care plan, medication regime and out patient plan of care prior to admission were reviewed. Education was provided regarding management of symptoms, medications and side effects. Nursing and social insurance administrator worked with Amanda on collateral contacts, care planning, education regarding symptom management, medications and discharge planning. Lamictal was initiated. Paxil and Trazodone were continued at pt request. Time spent discussing smoking cessation with patient: 3 to 10 minutes Status at Discharge Functional status at discharge: independent ambulation Overall status at discharge: patient is back to baseline Time Spent with Patient Time attestation: Total time spent providing and/or coordinating discharge services:35 Time spent: Greater than 30 minutes Discharge Plan Discharge Patient Disposition: Home, Self-Care Discharge Diagnosis: Recurrent Major Depression-Moderate Alcohol Use Disorder-Moderate Referrals: Physician,Unknown J [Primary Care Provider] - 1 Week (PT IN THE PROCESS OF CHANGING INSURANCE AND MD. PT VERBILIZES SHE WILL PROCESS THIS AND SCHEDULE F/U PCP) Discharge Medications: New lamotrigine 25 mg Tablet 25 mg PO BEDTIME Qty: 30 0RF Continued trazodone 50 mg tablet 1 - 2 tab PO BEDTIME PRN (Reason: insomnia) 0RF paroxetine HCl 40 mg tablet 1 tab PO BEDTIME 0RF norethindrone ac-eth estradiol 1-20 mg-mcg tablet 1 tab PO DAILY 0RF Discharge Orders: Discharge Order (Routine); Ordered 08/16/21 Ordered By: Jenna Watts Diet: advance to usual diet Activity on Discharge: As tolerated Stand Alone Forms: Patient Portal Discharge page, Community Support Care Plan Goals: Stabilization of Mood Sobriety Health Concerns: Recurrent major depression Alcohol use disorder Plan of Treatment: Follow up with scheduled appointments for therapy and psychopharmacology Take medications as directed [facility] has discharged you from the IOP program. They welcome your return for assessment for services if you believe you want to continue with their programs. As we discussed, if you are interested in attending the [facility] program, currently virtual, please call [phone], Ext [phone] to schedule an appointment for intake. This is an approximately two week program of group therapy for you to continue to work on coping skills and making changes. Assessment: non-suicidal, non-psychotic. 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 Patient Instructions: Lamotrigine (By mouth) Discharge Date/Time: 08/16/21 16:00
== END 2021-08-16 16:00 | disposition home or self-care (01) | DRG 751 ==
LOC: HO.ED 08-13 01:28 → HO.PM5 08-13 16:26
PROVIDERS: Admitting Provider Registered Nurse; Emergency Provider Internal Medicine; Visit Provider Registered Nurse
DX: F33.1 Major depressive disorder, recurrent, moderate (principal); R45.851 Suicidal ideations; F10.229 Alcohol dependence with intoxication, unspecified; Y90.7 Blood alcohol level of 200-239 mg/100 ml; F41.9 Anxiety disorder, unspecified; Z20.822 Contact with and (suspected) exposure to COVID-19; Z88.0 Allergy status to penicillin; Z79.3 Long term (current) use of hormonal contraceptives; Z79.899 Other long term (current) drug therapy
CPT/HCPCS: 36415; 80053; 80307; 81001; 81025; 82077; 82607; 82746; 83735; 84443; 85025; 87635; 93005; 99284

== ENCOUNTER → 2024-03-26 13:03 | Outpatient (BNVA) | payer SELFPAY | DX: Z02.83 Encounter for blood-alcohol and blood-drug test (principal) ==